=== PATIENT | female | born 1965 | race Caucasian/White ===

== ENCOUNTER 2024-01-13 10:44 | Emergency (ER) | payer OTHER ==
[~2024-01-13] VITALS: Ht 162.6 cm; Wt 120.0 kg
[2024-01-13 12:44] VITALS: TEMP 97.9
[2024-01-13 12:50] LABS: EOSINOPHILS % (AUTO) 0.4 % (1.0-6.0); HEMATOCRIT 46.2 % (36-46); HEMOGLOBIN 15.2 g/dL (12.0-16.0); LYMPHOCYTES # (AUTO) 3.2 K/uL (1.0-4.8); LYMPHOCYTES % (AUTO) 17.8 % (22.0-44.0); MEAN CORPUSCULAR HEMOGLOBIN 27.8 pg (26.0-34.0); MEAN CORPUSCULAR HGB CONC 32.9 G/dL (31.0-37.0); MEAN CORPUSCULAR VOLUME 85 fL (80-100); MONOCYTES # (AUTO) 0.9 K/uL (0.1-1.0); MONOCYTES % (AUTO) 5.2 % (2.0-9.0); NEUTROPHILS # (AUTO) 13.8 K/uL (1.8-7.7); NEUTROPHILS % (AUTO) 75.6 % (40.0-70.0); PLATELET COUNT (AUTO) 296 K/uL (150-450); RED BLOOD CELL COUNT(AUTO) 5.46 MIL/uL (4.00-5.20); RED CELL DISTRIBUTION WIDTH 14.4 % (11.5-14.5); WHITE BLOOD COUNT (AUTO) 18.2 K/uL (4.5-11.0)
[2024-01-13 12:59] LABS: ANION GAP 12 mmol/L (8-16); CALCIUM, TOTAL 9.1 mg/dL (8.8-10.5); CARBON DIOXIDE 23 mmol/L (22-29); CHLORIDE 104 mmol/L (98-107); CREATININE 1.23 mg/dL (0.60-1.30); GLOMERULAR FILTR. RATE CALC 45 mL/min (>60); GLUCOSE,RANDOM 101 mg/dL (70-110); POTASSIUM 4.3 mmol/L (3.5-5.1); SODIUM SERUM 139 mmol/L (136-145); UREA NITROGEN, BLOOD 20 mg/dL (7-18)
[2024-01-13 13:17] LABS: COVID AG,FIA SOURCE NASAL SWAB
[2024-01-13 13:27] LABS: ALCOHOL, BLOOD (SERUM) < 3 mg/dL (0-10)
[2024-01-13 13:41] LABS: SARS-COV2 (COVID) ANTIGEN,FIA Negative (Negative)
[2024-01-13 13:43] LABS: PH,URINE DRUG SCREEN 5.5 (5.0-8.0)
[2024-01-13 13:50] LABS: ALCOHOL, URINE DRUG SCREEN NEGATIVE (NEGATIVE); AMPHET/METH SCREEN,URINE POSITIVE (NEGATIVE); BARBITURATE SCREEN, URINE NEGATIVE (NEGATIVE); BENZODIAZEPINES SCREEN,URINE NEGATIVE (NEGATIVE); CANNABINOID SCREEN,URINE NEGATIVE (NEGATIVE); COCAINE SCREEN,URINE NEGATIVE (NEGATIVE); METHADONE SCREEN, URINE NEGATIVE (NEGATIVE); OPIATE SCREEN,URINE NEGATIVE (NEGATIVE); PHENCYCLIDINE SCREEN,URINE NEGATIVE (NEGATIVE)
[2024-01-13] MEDS: LORazepam 2 MG TABLET PO ONE (14:14)
[2024-01-13 14:46] LABS: APPEARANCE,URINE CLEAR (CLEAR); BILIRUBIN,URINE NEGATIVE (NEGATIVE); COLOR,URINE YELLOW (YELLOW); GLUCOSE, URINE (UA) NEGATIVE (NEGATIVE); KETONES,URINE NEGATIVE (NEGATIVE); LEUKOCYTE ESTERASE ,URINE NEGATIVE (NEGATIVE); NITRATE,URINE NEGATIVE (NEGATIVE); OCCULT BLOOD,URINE NEGATIVE (NEGATIVE); PH,URINE 5.5 (5.0-8.0); PROTEIN,URINE TRACE mg/dL (NEGATIVE); SPECIFIC GRAVITIY, URINE 1.025 (1.003-1.030); UROBILINOGEN,URINE <=1.0 mg/dL (<=1.0)
[2024-01-13 15:08] LABS: BACTERIA,URINE None Seen /HPF (None Seen); RBC,URINE None Seen /HPF (0-2); SQUAMOUS EPITHELIAL CELL,UR Rare /LPF (None Seen); WBC,URINE None Seen /HPF (0-5)
[2024-01-13 15:15] VITALS: BP 132/68; PULSE 82; RESP 18; O2SAT 99
== END 2024-01-13 16:01 | disposition home or self-care (01) ==
LOC: EMS 10:44
DX: R45.851 Suicidal ideations (principal); F15.10 Other stimulant abuse, uncomplicated; F17.210 Nicotine dependence, cigarettes, uncomplicated; F12.90 Cannabis use, unspecified, uncomplicated; Z79.899 Other long term (current) drug therapy; Z20.822 Contact with and (suspected) exposure to COVID-19
CPT/HCPCS: 99285; 87426; 80048; 85025; 36415; 80307; 81001; G0480

== ENCOUNTER 2024-01-13 19:44 | Inpatient (IN) | payer MEDICAID ==
[~2024-01-13] VITALS: Ht 167.6 cm; Wt 121.6 kg
[2024-01-13] MEDS ORDERED: HALOPERIDOL 5 MG TABLET PO PRN (20:00)
[2024-01-13] MEDS ORDERED: PNEUMOCOCCAL VACCINE POLYVALENT 0.5 ML SYRINGE [PPSV23] IM. ONE (21:30)
[2024-01-13] MEDS: ZOLPIDEM TARTRATE 10 MG TABLET PO PRN (22:07)
[2024-01-13 23:12] VITALS: BP 147/85; PULSE 94; RESP 18; TEMP 98.4; O2SAT 94
[2024-01-14] MEDS ORDERED: ACETAMINOPHEN 325 MG TABLET PO PRN (06:45)
[2024-01-14] MEDS ORDERED: MAG HYDROX/ALUMINUM HYD/SIMETH ES 30 ML SUSPENSION UDCUP PO PRN (06:45)
[2024-01-14] MEDS ORDERED: IBUPROFEN 400 MG TABLET PO PRN (06:45)
[2024-01-14] MEDS ORDERED: ONDANSETRON 4 MG TABLET PO PRN (06:45)
[2024-01-14] MEDS ORDERED: CloNIDine HCL 0.1 MG TABLET PO PRN (06:45)
[2024-01-14] MEDS ORDERED: LOPERAMIDE HCL 2 MG CAPSULE PO PRN (06:45)
[2024-01-14] MEDS ORDERED: DOCUSATE SODIUM 100 MG CAPSULE PO PRN (06:45)
[2024-01-14] MEDS ORDERED: PETROLATUM,WHITE 28 GM JELLY TP PRN (06:45)
[2024-01-14] MEDS ORDERED: ALBUTEROL SULFATE HFA 90 MCG/PUFF 8 GM INHALER IH PRN (06:45)
[2024-01-14] MEDS ORDERED: GuaiFENesin/D-METHORPHAN [SUGAR-FREE] 200-20MG/10 ML SYRUP UDCUP PO PRN (06:45)
[2024-01-14] MEDS ORDERED: NICOTINE 14 MG/24 HOUR PATCH TD PRN (06:45)
[2024-01-14] MEDS: LORazepam 2 MG TABLET PO PRN (08:20)
[2024-01-14 08:22] VITALS: RESP 16
[2024-01-14] MEDS: PARoxetine HCL 20 MG TABLET PO SCH (10:17)
[2024-01-14] MEDS: LURASIDONE HCL 40 MG TABLET PO SCH (10:17)
[2024-01-14 20:39] VITALS: BP 126/60; PULSE 70; RESP 19; TEMP 97.7; O2SAT 100
[2024-01-14] MEDS: QUEtiapine FUMARATE 300 MG TABLET PO SCH (21:32)
[2024-01-15 08:10] VITALS: RESP 18
[2024-01-15 20:43] VITALS: BP_SYST 132; BP_DIAS 61; BP_DIAS 73; PULSE 132; PULSE 61; RESP 16; TEMP 96.8; O2SAT 96
[2024-01-16 09:25] VITALS: RESP 16
[2024-01-16 21:14] VITALS: BP 144/82; PULSE 64; RESP 16; TEMP 98; O2SAT 96
[2024-01-17 08:31] VITALS: BP 102/56; PULSE 79; RESP 16; TEMP 97.8; O2SAT 96
[2024-01-17 08:35] VITALS: BP 105/62; PULSE 82; RESP 16; TEMP 97.6; O2SAT 98
[2024-01-17 09:12] LABS: HEMOGLOBIN A1C 5.1 % (3.8-5.6)
[2024-01-17 09:25] LABS: THYROID STIMULATING HORMONE 2.2 uIU/mL (0.36-3.74)
[2024-01-17 21:38] VITALS: BP 137/68; PULSE 79; RESP 18; TEMP 97.5; O2SAT 97
[2024-01-18 08:25] VITALS: BP 103/55; PULSE 81; RESP 17; TEMP 97.8; O2SAT 95
[2024-01-18 21:29] VITALS: BP 126/77; PULSE 64; RESP 16; TEMP 96.8; O2SAT 96
[2024-01-19 08:35] VITALS: BP 140/91; PULSE 67; RESP 16; TEMP 97.7; O2SAT 96
[2024-01-19] MEDS: MAGNESIUM HYDROXIDE SUSPENSION 30 ML UDCUP PO PRN (08:44)
[2024-01-19 09:29] LABS: APPEARANCE,URINE TURBID (CLEAR); BILIRUBIN,URINE NEGATIVE (NEGATIVE); COLOR,URINE YELLOW (YELLOW); GLUCOSE, URINE (UA) NEGATIVE (NEGATIVE); KETONES,URINE NEGATIVE (NEGATIVE); LEUKOCYTE ESTERASE ,URINE SMALL (NEGATIVE); NITRATE,URINE NEGATIVE (NEGATIVE); OCCULT BLOOD,URINE TRACE (NEGATIVE); PROTEIN,URINE TRACE mg/dL (NEGATIVE); SPECIFIC GRAVITIY, URINE 1.019 (1.003-1.030); UROBILINOGEN,URINE <=1.0 mg/dL (<=1.0)
[2024-01-19 09:37] LABS: ALCOHOL, URINE DRUG SCREEN NEGATIVE (NEGATIVE); AMPHET/METH SCREEN,URINE NEGATIVE (NEGATIVE); BARBITURATE SCREEN, URINE NEGATIVE (NEGATIVE); BENZODIAZEPINES SCREEN,URINE NEGATIVE (NEGATIVE); CANNABINOID SCREEN,URINE NEGATIVE (NEGATIVE); COCAINE SCREEN,URINE NEGATIVE (NEGATIVE); METHADONE SCREEN, URINE NEGATIVE (NEGATIVE); OPIATE SCREEN,URINE NEGATIVE (NEGATIVE); PHENCYCLIDINE SCREEN,URINE NEGATIVE (NEGATIVE)
[2024-01-19 09:39] LABS: BACTERIA,URINE Few /HPF (None Seen); CALCIUM OXALATE CRYSTALS,UR Few /LPF (None Seen); RBC,URINE 0-2 /HPF (0-2); SQUAMOUS EPITHELIAL CELL,UR Many /LPF (None Seen); WBC,URINE 0-2 /HPF (0-5)
[2024-01-19 20:48] VITALS: BP 116/84; PULSE 76; RESP 16; TEMP 98.3; O2SAT 97
[2024-01-20 08:44] VITALS: BP 148/87; PULSE 72; RESP 17; TEMP 97.5; O2SAT 98
[2024-01-20 22:00] VITALS: BP 113/69; PULSE 69; RESP 18; TEMP 96.4; O2SAT 96
[2024-01-21 08:10] VITALS: BP 130/84; PULSE 63; RESP 17; TEMP 98.1; O2SAT 96
[2024-01-21 19:40] VITALS: BP 118/64; PULSE 62; RESP 18; TEMP 97.9
[2024-01-21 22:41] VITALS: BP 118/64; PULSE 62; RESP 18; TEMP 97.1
[2024-01-22 08:26] VITALS: BP 136/64; PULSE 66; RESP 18; TEMP 97.6; O2SAT 98
[2024-01-22] MEDS ORDERED: PARO10OR3 PO (12:05)
[2024-01-22] MEDS ORDERED: LURA40TA2 PO ×2 (12:06→12:33)
[2024-01-22] MEDS ORDERED: QUET300T2 PO (12:07)
[2024-01-22] MEDS ORDERED: PARO-37 PO (12:33)
[2024-01-22] MEDS ORDERED: QUET300T19 PO (12:33)
== END 2024-01-22 13:54 | disposition home or self-care (01) | DRG 753 ==
LOC: B3A 20:07
PROVIDERS: ADMIT Psychiatry & Neurology Child & Adolescent Psychiatry; ATTEND Psychiatry & Neurology Child & Adolescent Psychiatry
PROC: GZ58ZZZ Individual Psychotherapy, Cognitive-Behavioral (ICD-10-PCS; principal; 2024-01-14)
PROC: GZ56ZZZ Individual Psychotherapy, Supportive (ICD-10-PCS; 2024-01-14)
DX: F31.4 Bipolar disorder, current episode depressed, severe, without psychotic features (principal); E66.01 Morbid (severe) obesity due to excess calories; F15.10 Other stimulant abuse, uncomplicated; F10.10 Alcohol abuse, uncomplicated; Y90.9 Presence of alcohol in blood, level not specified; I10 Essential (primary) hypertension; Z68.41 Body mass index [BMI] 40.0-44.9, adult
CPT/HCPCS: 80061; 80307; 81001; 83036; 84443; 36415-L1; 36415-TC; Z7610